=== PATIENT | male | born 1965 | race Caucasian/White ===

== ENCOUNTER 2018-05-15 08:20 | Day surgery (SDC) | payer BC, SELFPAY ==
[2018-05-15] VITALS (7 sets, daily range): BP systolic 110–150; BP diastolic 66–89; PULSE 79–99; RESP 16–18; TEMP 36.4–37.1; O2SAT 89–97; BMI 52.7
[2018-05-15 09:31] LABS: Bedside Glucose 120 mg/dL (70-110)
[2018-05-15] MEDS: Cefazolin 2 GM in 0.9% Normal Saline 100 ML IV (10:44)
[2018-05-15] MEDS: Betamethasone/Betamethasone 30 MG/5 ML Vial (11:09)
--- NOTE | 2018-05-15 12:41 | PCM.OPRPT ---
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 Ko First-Cloud Engineer: PRINCE Link Anesthesia: general ASA: 3 Drains: none Specimen: none EBL: minimal With appropriate informed consent and after the administration of IV antibiotic, the patient was taken to OR 1 and general anesthesia was induced. A tourniquet was placed around the right brachium and the RUE was prepared and draped sterilely. The RUE was exsanguinated and the tourniquet was applied at 250 mm Hg. A longitudinal incision was made over the lateral epicondyle of the humerus. Hemostasis was perfected with electrocautery and scissor dissection was carried down to the lateral epicondyle. The ECRL was split and the degenerated ECRB tendon was encountered. The degenerated portion of the tendon was debrided and the common extensor was released from the lateral epicondyle. The wound was copiously irrigated. The extensor mass was repaired with interrupted suture of 0 vicryl. Subsequently the wound was closed in layers with steri-strips on the skin. The swollen olecranon bursa was injected using a 22 gauge needle with 2 cc of 1% Lidocaine and 2 cc of Celestone Soluspan. The tourniquet was released and excellent blood flow returned to the right hand. A sterile dressing was placed and the patient was extubated and sent to PACU in stable condition. noc technician: Richi Michelle Type of Anesthesia:: General Anesthesiologist: Dino Hickman Specimen's removed: none Drains: none Estimated Blood Loss (mL): minimal - Admit VTE Documentation VTE Present on Admission: No VTE Mechan Device Prophylaxis: SCD's VTE Pharm Prophylaxis ordered?: No Reason prophylaxis not ordered:: Treatment Not Indicated
--- NOTE | 2018-05-15 12:58 | OP.PCM_ITS ---
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 Ko First-Perforator Typist: PRINCE Link Anesthesia: general ASA: 3 Drains: none Specimen: none EBL: minimal With appropriate informed consent and after the administration of IV antibiotic, the patient was taken to OR 1 and general anesthesia was induced. A tourniquet was placed around the right brachium and the RUE was prepared and draped sterilely. The RUE was exsanguinated and the tourniquet was applied at 250 mm Hg. A longitudinal incision was made over the lateral epicondyle of the humerus. H emostasis was perfected with electrocautery and scissor dissection was carried down to the lateral epicondyle. The ECRL was split and the degenerated ECRB tendon was encountered. The degenerated portion of the tendon was debrided and the common extensor was released from the lateral epicondyle. The wound was copiously irrigated. The extensor mass was repaired with interrupted suture of 0 vicryl. Subsequently the wound was closed in layers with steri-strips on the skin. The swollen olecranon bursa was injected using a 22 gauge needle with 2 cc of 1% Lidocaine and 2 cc of Celestone Soluspan. The tourniquet was released and excellent blood flow returned to the right hand. A sterile dressing was placed and the patient was extubated and sent to PACU in stable condition. county home demonstrator: Richi Michelle Type of Anesthesia:: General Anesthesiologist: Dino Hickman Specimen's removed: none Drains: none Estimated Blood Loss (mL): minimal - Admit VTE Documentation VTE Present on Admission: No VTE Mechan Device Prophylaxis: SCD's VTE Pharm Prophylaxis ordered?: No Reason prophylaxis not ordered:: Treatment Not Indicated
== END 2018-05-15 13:05 | disposition home or self-care (01) ==
LOC: SDC 08:22 → AC 08:29
PROVIDERS: Family Provider Nurse Practitioner Family; PCP Nurse Practitioner Family; Referring Provider Orthopaedic Surgery; Visit Provider Orthopaedic Surgery
PROC: (CPT 24357; principal; 2018-05-15 10:20)
DX: M77.11 Lateral epicondylitis, right elbow (principal); M70.21 Olecranon bursitis, right elbow; E11.9 Type 2 diabetes mellitus without complications; E78.00 Pure hypercholesterolemia, unspecified; G47.30 Sleep apnea, unspecified; F17.200 Nicotine dependence, unspecified, uncomplicated
CPT/HCPCS: 20605; 24006; 82962; J7120; J0702; J2405

== ENCOUNTER 2020-07-28 12:00 | Day surgery (SDC) | payer BC, SELFPAY ==
[2018-05-15 08:53] VITALS: BMI 52.7
[2020-07-28] VITALS (7 sets, daily range): BP systolic 125–160; BP diastolic 76–114; PULSE 69–82; RESP 16–20; TEMP 36.8; O2SAT 92–96; BMI 77.4
[2020-07-28] MEDS: Lactated Ringers 1,000 ML 100 ML IV (13:00)
--- NOTE | 2020-07-28 13:00 | RAD_ITS ---
PROCEDURE: Caudal epidural steroid injection. DATE OF EXAMINATION: 07/28/2020 INDICATION: Male, 54 years old. Low back pain. FLUOROSCOPY TIME (if supplied): (29 seconds) minutes/seconds. One image was obtained. Intraoperative imaging provided for caudal epidural steroid injection. RAD/Fluor Guidance for Spine Inj IMPRESSION: Intraoperative imaging provided for caudal epidural steroid injection. Electronically Signed: Timoteo Taylor MD at 13:39 EDT , Service support ,
[2020-07-28] MEDS: MethylPREDNISolone Acetate 80 MG/ML Vial (13:05)
[2020-07-28] MEDS: 0.9% Normal Saline (Pres. free 10 ML Vial (13:06)
[2020-07-28] MEDS: Lidocaine 1% (5 ml sdv) 5 ML Vial (13:07)
[2020-07-28] MEDS: Bupivacaine 0.25% 30 ML Vial (13:07)
[2020-07-28 13:26] LABS: Bedside Glucose 120 mg/dL (70-110)
--- NOTE | 2020-07-28 13:44 | OP.PCM_ITS ---
Report of Operation Date of Procedure: 07/28/20 Pre-Operative Diagnosis: Lumbosacral radiculopathy, lumbosacral degenerative di sc disease, lumbosacral spinal stenosis Post-Operative Diagnosis: Lumbosacral radiculopathy, lumbosacral degenerative disc disease, lumbosacral spinal stenosis Surgery/Procedure Performed:: Caudal epidural steroid injection under fluoroscopic guidance Type of Anesthesia: MAC Estimated Blood Loss (mL): Minimal Description of Procedure: DESCRIPTION OF PROCEDURE: History and physical of today was reviewed. Risks and benefits of the procedure were explained. The patient understood and agreed to proceed. Informed consent was obtained. IV inserted per routine protocol. The patient was taken to the operating room and placed in the prone position with a pillow positioned underneath the abdomen. The lower back and tailbone area was prepped and draped in a sterile fashion using iodine x3. Under fluoroscopy guidance on a lateral view, the caudal space was identified. The skin and subcutaneous tissue was anesthetized with approximately 3 mL of 1% lidocaine using a 25-gauge regular needle. Under direct visualization with fluoroscopy, using a 22-gauge 3-1/2-inch spinal needle, the needle was advanced via the skin through the sacral hiatus. The tip of the needle was passed through the sacrococcygeal ligament and advanced to approximately S4 area. After negative aspiration of blood or CSF, a total of 3 mL of contrast was injected to confirm correct placement of the needle as well as cephalad spread. The spread was followed to approximately L5 area. After confirmation on AP as well as lateral view and repeated negative aspiration, a total of 15 mL of preservative-free 0.125% Marcaine with 80 mg of Depo-Medrol was injected easily. The needle was then removed intact. The patient experienced no sign or symptoms of intrathecal or intravascular injection. The patient experienced no paresthesia. The procedure was completed without any apparent difficulty or any complications. The patient appeared to tolerate it well. ASSESSMENT AND PLAN: This is a 54-year-old male with lumbosacral radiculopathy, lumbosacral degenerative disc disease, lumbosacral spinal stenosis status post diagnostic/therapeutic caudal epidural steroid injection, patient will continue his current medications, patient will follow in approximately 2 weeks for reevaluation. Complications None
== END 2020-07-28 13:50 | disposition home or self-care (01) ==
LOC: SDC 12:03 → AC 12:08
PROVIDERS: Referring Provider Anesthesiology Pain Medicine; Visit Provider Anesthesiology Pain Medicine
PROC: 3E0S3BZ Introduction of Anesthetic Agent into Epidural Space, Percutaneous Approach (ICD-10-PCS; CPT 62282; principal; 2020-07-28 13:55)
DX: M48.07 Spinal stenosis, lumbosacral region (principal); M51.17 Intervertebral disc disorders with radiculopathy, lumbosacral region; M47.817 Spondylosis without myelopathy or radiculopathy, lumbosacral region; E11.9 Type 2 diabetes mellitus without complications; F17.200 Nicotine dependence, unspecified, uncomplicated; Z79.899 Other long term (current) drug therapy
CPT/HCPCS: 62323; 64483; 77003; 82962; J7120; J3490

== ENCOUNTER 2020-10-13 11:20 | Day surgery (SDC) | payer BC, SELFPAY ==
[2020-07-28 12:18] VITALS: BMI 77.4
[2020-10-13 13:33] VITALS: BP 133/64; PULSE 56; RESP 16; TEMP 36.1; O2SAT 94; BMI 56.2
[2020-10-13] MEDS: Lactated Ringers 1,000 ML 100 ML IV (13:42)
[2020-10-13 14:01] LABS: Bedside Glucose 104 mg/dL (70-110)
--- NOTE | 2020-10-13 14:05 | RAD_ITS ---
PROCEDURE: Caudal block. DATE OF EXAMINATION: 10/13/2020. INDICATION: Male, 55 years old. Low back pain. FLUOROSCOPY TIME (if supplied): (9.9 seconds) minutes/seconds. 2 images were submitted. RAD/Fluor Guidance for Spine Inj IMPRESSION: Intraoperative imaging provided for caudal block. Electronically Signed: Timoteo Taylor MD at 22:28 EDT , Service support ,
[2020-10-13] MEDS: 0.9% Normal Saline (Pres. free 10 ML Vial (14:19)
[2020-10-13] MEDS: Bupivacaine 0.25% 30 ML Vial (14:19)
[2020-10-13] MEDS: Lidocaine 1% (5 ml sdv) 5 ML Vial (14:19)
[2020-10-13] MEDS: MethylPREDNISolone Acetate 80 MG/ML Vial (14:19)
[2020-10-13 14:25] VITALS: BP 113/93; BP 133/64; PULSE 76; RESP 18; TEMP 36.1; O2SAT 98
[2020-10-13 14:30] VITALS: BP 125/81; BP 133/64; PULSE 77; RESP 20; O2SAT 95
[2020-10-13 14:35] VITALS: BP 133/64; BP 141/90; PULSE 70; RESP 18; O2SAT 95
[2020-10-13 14:41] VITALS: BP 133/64; BP 152/82; PULSE 64; RESP 18; TEMP 36.1; O2SAT 94
[2020-10-13 14:55] VITALS: BP 133/64
--- NOTE | 2020-10-13 17:31 | OP.PCM_ITS ---
Report of Operation Date of Procedure: 10/13/20 Pre-Operative Diagnosis: Lumbosacral radiculopathy, lumbosacral degenerative di sc disease, lumbosacral spinal stenosis Post-Operative Diagnosis: Lumbosacral radiculopathy, lumbosacral degenerative disc disease, lumbosacral spinal stenosis Surgery/Procedure Performed:: Caudal epidural steroid injection under fluoroscopic guidance Type of Anesthesia: MAC Estimated Blood Loss (mL): Minimal Description of Procedure: DESCRIPTION OF PROCEDURE: History and physical of today was reviewed. Risks and benefits of the procedure were explained. The patient understood and agreed to proceed. Informed consent was obtained. IV inserted per routine protocol. The patient was taken to the operating room and placed in the prone position with a pillow positioned underneath the abdomen. The lower back and tailbone area was prepped and draped in a sterile fashion using iodine x3. Under fluoroscopy guidance on a lateral view, the caudal space was identified. The skin and subcutaneous tissue was anesthetized with approximately 3 mL of 1% lidocaine using a 25-gauge regular needle. Under direct visualization with fluoroscopy, using a 22-gauge 3-1/2-inch spinal needle, the needle was advanced via the skin through the sacral hiatus. The tip of the needle was passed through the sacrococcygeal ligament and advanced to approximately S4 area. After negative aspiration of blood or CSF, a total of 3 mL of contrast was injected to confirm correct placement of the needle as well as cephalad spread. The spread was followed to approximately L5 area. After confirmation on AP as well as lateral view and repeated negative aspiration, a total of 15 mL of preservative-free 0.125% Marcaine with 80 mg of Depo-Medrol was injected easily. The needle was then removed intact. The patient experienced no sign or symptoms of intrathecal or intravascular injection. The patient experienced no paresthesia. The procedure was completed without any apparent difficulty or any complications. The patient appeared to tolerate it well. ASSESSMENT AND PLAN: This is a 55-year-old male with lumbosacral radiculopathy, lumbosacral degenerative disc disease, lumbosacral spinal stenosis status post caudal epidural steroid injection, patient will continue his current medications, patient will follow in approximately 2 weeks for reevaluation. Complications None
== END 2020-10-13 15:03 | disposition home or self-care (01) ==
LOC: SDC 11:21 → AC 13:05
PROVIDERS: Referring Provider Anesthesiology Pain Medicine; Visit Provider Anesthesiology Pain Medicine
PROC: 3E0S3BZ Introduction of Anesthetic Agent into Epidural Space, Percutaneous Approach (ICD-10-PCS; CPT 62282; principal; 2020-10-13 13:05)
DX: M48.07 Spinal stenosis, lumbosacral region (principal); M51.17 Intervertebral disc disorders with radiculopathy, lumbosacral region; E11.9 Type 2 diabetes mellitus without complications; I10 Essential (primary) hypertension; M51.37 Other intervertebral disc degeneration, lumbosacral region; M47.817 Spondylosis without myelopathy or radiculopathy, lumbosacral region; Z79.899 Other long term (current) drug therapy; F17.200 Nicotine dependence, unspecified, uncomplicated
CPT/HCPCS: 62323; 64483; 77003; 82962; J7120; J3490

== ENCOUNTER 2020-12-29 06:56 | Day surgery (SDC) | payer BC, SELFPAY ==
[2020-12-29] VITALS (7 sets, daily range): BP systolic 117–122; BP diastolic 61–82; PULSE 68–80; RESP 19–20; TEMP 35.9–36.4; O2SAT 93–96; BMI 57.1
[2020-12-29 07:25] LABS: Bedside Glucose 113 mg/dL (70-110)
[2020-12-29] MEDS: Lidocaine 1% (5 ml sdv) 5 ML Vial (07:29)
[2020-12-29] MEDS: Lactated Ringers 1,000 ML 100 ML IV (07:39)
--- NOTE | 2020-12-29 08:30 | RAD_ITS ---
STUDY: X-RAY - LUMBAR SPINE REASON FOR EXAM: Male, 55 years old. Intraprocedural digital documentation images and transforaminal injections at L5-S1 on the right. TECHNIQUE: 3 intraoperative digital documentation view(s) of the lumbar spine were obtained. COMPARISON: None FINDINGS: 3 intraprocedural digital documentation to show needle at L5-S1 with injection of contrast. RAD/Lumbar Spine 2 or 3 Views IMPRESSION: Intraprocedural images as described. Electronically Signed: Tery Alves MD at 9:56 EDT , Service support ,
[2020-12-29] MEDS: Bupivacaine 0.25% 30 ML Vial (08:42)
[2020-12-29] MEDS: MethylPREDNISolone Acetate 80 MG/ML Vial (08:42)
--- NOTE | 2020-12-29 15:34 | OP.PCM_ITS ---
Report of Operation Date of Procedure: 12/29/20 Description of Surgical Findings:: PREOPERATIVE DIAGNOSIS: Lumbosacral radiculopathy, lumbosacral degenerative disc disease, lumbosacral spinal stenosis POSTOPERATIVE DIAGNOSIS: Lumbosacral radiculopathy, lumbosacral degenerative disc disease, lumbosacral spinal stenosis PROCEDURE PERFORMED: Right sided lumbar transforaminal epidural steroid injection, L4-5 and L5-S1. ANESTHESIA: BLOOD LOSS: COMPLICATIONS: DESCRIPTION OF PROCEDURE: History and physical of today was reviewed. Risks and benefits of the procedure were explained. The patient understood and agreed to proceed. Informed consent was obtained. IV inserted per routine protocol. The patient was taken to the operating room and placed in the prone position with a pillow positioned underneath the abdomen. The right side of the lower back was prepped and draped in a sterile fashion using iodine x3. Under fluoroscopy guidance on oblique view, the L4 through S1 vertebral bodies were visualized. The skin and subcutaneous tissue was anesthetized with approximately 5 mL of 1% lidocaine using a 25-gauge regular needle. Under direct visualization with fluoroscopy at approximately 35-degree angle, starting on the right L4, ending on the right L5, using a 22-gauge 5-inch spinal needle, the needle was advanced via the skin. The tip of the needle was maneuvered and directed towards the inferior and medial gutter of the transverse process at the superiormost aspect of the neural foramen. Once the tip of the needle was at the vicinity of the foramen, after negative aspiration for blood or CSF, a total of 1 mL of contrast was injected in divided doses between both levels to confirm correct placement of the needle as well as medial spread. The confirmation was obtained on AP as well as lateral view. After repeated negative aspiration and confirmation on AP as well as lateral view, a total of 6 mL of preservative-free 0.25% Marcaine with 80 mg of Depo-Medrol was injected in divided doses between both levels. The needles were then removed intact. The patient experienced no sign or symptoms of intrathecal or intravascular injection. The patient experienced no paresthesia. The procedure was completed without any apparent difficulty or any complications. The patient appeared to tolerate it well. Assessment and plan: This is a 55-year-old male with lumbosacral radiculopathy, lumbosacral degenerative disc disease, lumbosacral spinal stenosis status post right-sided lumbar transforaminal epidural steroid injection L4- 5, L5-S1 patient will cont inue his current medications, patient will follow in approximately 2 weeks for reevaluation.
== END 2020-12-29 09:21 ==
LOC: SDC 06:58 → AC 06:58
PROVIDERS: PCP Nurse Practitioner Family; Referring Provider Anesthesiology Pain Medicine; Visit Provider Anesthesiology Pain Medicine
PROC: 3E0S3BZ Introduction of Anesthetic Agent into Epidural Space, Percutaneous Approach (ICD-10-PCS; CPT 62322; principal; 2020-12-29 08:25)
DX: M51.17 Intervertebral disc disorders with radiculopathy, lumbosacral region (principal); M48.07 Spinal stenosis, lumbosacral region; E11.9 Type 2 diabetes mellitus without complications
CPT/HCPCS: 64484; 64483; 72100; 82962; J7120